=== PATIENT | male | born 1980 | race Caucasian/White ===

== ENCOUNTER → 2017-08-06 10:39 | Outpatient (CLI) | payer BC, SELFPAY ==
[2017-08-06 10:52] LABS: Adenovirus,PCR Not Detected (NotDetected); Bordetella Pertussis Not Detected (NotDetected); Chlamydophila Pneumoniae, PCR Not Detected (NotDetected); Coronavirus 229E Not Detected (NotDetected); Coronavirus NL63 Not Detected (NotDetected); Coronavirus OC43 Not Detected (NotDetected); Coronovirus HKU1,PCR Not Detected (NotDetected); Human Metapneumovirus Not Detected (NotDetected); Influenza A, PCR Not Detected (NotDetected); Influenza AH1, 2009 Not Detected (NotDetected); Influenza AH1, PCR Not Detected (NotDetected); Influenza AH3,PCR Not Detected (NotDetected); Influenza B, PCR Not Detected (NotDetected); Mycoplasma Pneumoniae, PCR Not Detected (NotDected); Parainfluenza 1, PCR Not Detected (NotDetected); Parainfluenza 2, PCR Not Detected (NotDetected); Parainfluenza 3, PCR Not Detected (NotDetected); Parainfluenza 4, PCR Not Detected (NotDetected); Respiratory Syncytial Virus Not Detected (NotDetected); Rhinovirus/Enterovirus Not Detected (NotDetected)
== END ==
PROVIDERS: PCP Nurse Practitioner Family; Visit Provider Nurse Practitioner Family
DX: R05 Cough (principal); R53.81 Other malaise
CPT/HCPCS: 87486; 87581; 87633; 87798

== ENCOUNTER → 2018-07-12 08:30 | Outpatient (CLI) | payer BC, SELFPAY ==
[2018-07-12 13:30] LABS: Basophils # 0.1 K/mm3 (0-0.2); Basophils % 0.6 % (0.1-2.0); Eosinophils # 0.1 K/mm3 (0.0-0.4); Eosinophils % 1.6 % (0.1-12.0); Hematocrit 46.3 % (42.0-52.0); Hemoglobin 15.7 g/dL (14.1-18.0); Lymphocytes # 1.4 K/mm3 (0.7-4.5); Lymphocytes % 19.5 % (10-50); Mean Corpuscular HGB Conc 33.9 g/dL (31.8-35.4); Mean Corpuscular Hemoglobin 29.4 pg (27.0-31.2); Mean Corpuscular Volume 86.7 fl (80-94); Mean Platelet Volume 9.9 fl (7.4-10.4); Monocytes # 0.4 K/mm3 (0.1-1.0); Monocytes % 5.5 % (1.7-9.3); Neutrophils # 5.2 K/mm3 (1.8-7.8); Neutrophils % 72.8 % (37.0-80.0); Platelet Count 177 K/mm3 (142-424); Red Blood Count 5.34 M/mm3 (4.60-6.20); White Blood Count 7.1 K/mm3 (4.8-10.8)
[2018-07-12 13:55] LABS: Alanine Aminotransferase 32 U/L (12-78); Albumin Level 4.3 gm/dL (3.4-5.0); Albumin/Globulin Ratio 1.6 (1.1-1.8); Alkaline Phosphatase 59 U/L (46-116); Anion Gap 13.6 mEq/L (5-15); Aspartate Amino Transferase 18 U/L (15-37); Bilirubin,Total 0.5 mg/dL (0.2-1.0); Blood Urea Nitrogen 18 mg/dL (7-18); Calcium 9.3 mg/dL (8.5-10.1); Carbon Dioxide 27 mmol/L (21.0-32.0); Chloride 105 mmol/L (98-107); Chol/HDL Ratio 4.5 (1-3.5); Cholesterol 170 mg/dL (140-200); Creatinine,Serum 1.13 mg/dL (0.70-1.30); Estimated Glomerular Filt Rate 73 ml/min (>60); GFR (African American) 88 ML/MIN (>60); Globulin 2.7 gm/dl (1.3-3.2); Glucose 99 mg/dL (74-106); HDL Cholesterol 38 mg/dL (27-67); LDL Cholesterol 119 mg/dL (0-130); Potassium 4.6 mmoL/L (3.5-5.1); Sodium 141 mmol/L (136-145); Thyroid Stimulating Hormone 1.78 uIU/ml (0.358-3.740); Triglycerides 63 mg/dL (30-200); VLDL Cholesterol 13 mg/dL (0-40)
[2018-07-13 18:08] LABS: Vitamin B12 610 pg/mL (232-1245); Vitamin D 25 Hydroxy 25.6 ng/mL (30.0-100.0)
== END ==
PROVIDERS: PCP Nurse Practitioner Family; Visit Provider Nurse Practitioner Family
DX: Z00.00 Encounter for general adult medical examination without abnormal findings (principal); R53.83 Other fatigue
CPT/HCPCS: 36415; 80053; 80061; 82607; 82652; 84443; 85025

== ENCOUNTER 2020-01-03 12:44 | Emergency (ER) | payer BC, SELFPAY ==
[2020-01-03 13:00] VITALS: BP 135/84; PULSE 57; RESP 18; TEMP 36.8; O2SAT 98; BMI 27.1
--- NOTE | 2020-01-03 13:21 | HMH.EDUTC ---
[facility] [place] Disposition Clinical Impression: Exposure to COVID-19 virus, Encounter for laboratory testing for COVID-19 virus Disposition: Home, Self-Care Condition on Discharge: Good Instructions: Preventing the Spread of Coronavirus Discharge Instructions, DI for Fever (Symptom) -- Adult, DI for Cough -- Adult Additional Instructions: *Monitor Temp, Over the counter Motrin or Tylenol as directed/as needed Tylenol every 4 hours and Motrin every 6 hours (as long as your family doctor has told you that you can take it) for fever or pain. and straight to ER if unable to lower temp less than 101.0 after medication given *Warm salt water gargles may help to soothe the throat *Throat Lozenges *Warm fluids like tea with honey may help to soothe the throat *Sleep elevated *Humidifier/Vaporizer Follow up IMMEDIATELY for new or worsening symptoms or no Noticeable improvement over the next 48-72 hours. 911 for difficulty breathing or swallowing You was tested for today for COVID19 your test result should be back later this evening, you may call back later this evening to see if your test results are back and the result You was given a handout with instructions for Self Quarantine and Self isolation for while you wait on test results and what to do if they are positive Prescriptions: Albuterol Sulfate [Proventil-HFA 90mcg/puff Inh] 1 - 2 puffs IH Q4HP PRN #1 inh PRN Reason: Shortness Of Breath Transmission Status: Pending to [employer] Referrals: PCP,No [Primary Care Provider] - As needed Forms: Work/School Release Medical Decision Making - Russel Inquiry Pt receiving controlled substance: No Russel was queried for this patient: No Vital Signs: 01/03/20 13:00 Temperature 98.3 F Temperature Source Oral Pulse Rate [Radial] 57 L Respiratory Rate 18 Blood Pressure [Right Arm] 135/84 Blood Pressure Mean [Right Arm] 101 Blood Pressure Source [Right Arm] Automatic Cuff Blood Pressure Position [Right Arm] Sitting 02 Sat by Pulse Oximetry 98 Oxygen Delivery Method Room Air Orders (Tests/Meds): ORDERS Category Date Time Status Covid-19 Nasal PCR ([facility]) Routine Lab 01/03/20 13:07 Received [facility] [place] HPI - General Stated complaint: back pain,lung pain,stuffy nose Time Seen by Provider: 01/03/20 13:22 Mode of Arrival: Ambulatory Source of Information: Patient Limitations: No Limitations Description of Symptoms (Recalled from Triage Doc. by RN): COVID exposure, mcmanus, achy sinus pressure HEENT Symptoms (Recalled from RN notes): Yes Resp Symptoms (Recalled from RN notes): No Skin Symptoms (Recalled from RN notes): No MS Symptoms (Recalled from RN notes): No Functional Status (Recalled from RN notes): wnl - History of Present Illness Provider Complaint: Patient states that daughter tested positive for COVID yesterday States that for last couple of days he has been having cough, nasal congestion, sore throat and sinus pressure States that he is an every day smoker and he has been feeling of shortness of breath at times from coughing so much States that today he came in to get checked for COVID - Related Data Previous Rx's Medication Instructions Recorded Albuterol Sulfate [Proventil-HFA 1 - 2 puffs IH Q4HP PRN #1 inh 01/03/20 90mcg/puff Inh] Allergies Allergy/AdvReac Type Severity Reaction Status Date / Time Penicillins Allergy Verified 01/03/20 13:03 - Worker's Comp Is this a Worker's Comp case?: No [facility] History - Hepatitis A Screen Drug use history?: No High risk sexual behaviors?: No History of sexually transmitted infection?: No Currently employed?: No Childcare worker?: No Do you have indoor plumbing?: Yes Do you have electricity?: Yes Attestation statement:: This patient has been screened for Hepatitis A risk factors. I have reviewed the patient's past medical history: Yes - Social History Smoking Status: Current every day smoker Tobacco Type: cigarettes # Packs/Day
[2020-01-03 13:39] VITALS: BP 135/84; PULSE 64; RESP 18; TEMP 36.8
== END 2020-01-03 13:39 | disposition home or self-care (01) ==
PROVIDERS: Emergency Provider Nurse Practitioner
DX: Z20.828 Contact with and (suspected) exposure to other viral communicable diseases (principal); F17.210 Nicotine dependence, cigarettes, uncomplicated
CPT/HCPCS: 99201; U0003

== ENCOUNTER 2020-01-10 16:46 | Emergency (ER) | payer BC, SELFPAY ==
[2020-01-10 17:08] VITALS: BP 156/62; PULSE 68; RESP 17; TEMP 37.1; O2SAT 99; BMI 27.2
--- NOTE | 2020-01-10 17:14 | XR_ITS ---
PROCEDURE: XR CHEST PORTABLE Referring Doctor: Sid Thoams Patient Age:39Y CLINICAL HISTORY: burning w/ inspiration Positive for covid. Burning sensation chest and with inspiration. Current smoker. COMPARISON: No exams were available for comparison FINDINGS: Portable upright AP chest performed; 2 upright views performed today with no previous CXR for comparison The lungs appear well expanded and clear with nothing definitely acute. Upper normal markings towards the left infrahilar region within normal limits on these 2 AP views. If symptoms should progress follow-up PA and lateral chest recommended. No hilar or mediastinal adenopathy or mass. No lung mass. No pleural effusion or pneumothorax. Heart normal size. Normal pulmonary vascularity,The lungs are clear without discrete infiltrates, and no suspicious nodules, or pleural effusions. No acute bony abnormalities. Chest wall unremarkable. IMPRESSION: Lungs clear with nothing definitely acute. Dictated by: Zurdo Ramirez MD 01/10/2020 17:52 Zurdo Ramirez MD in [place] 01/10/2020 17:52
--- NOTE | 2020-01-10 17:15 | HMH.EDGENADL ---
ED Disposition Clinical Impression: COVID-19 Disposition: Home, Self-Care Condition on Discharge: Good Prescriptions: methylPREDNISolone [Medrol] 4 mg PO DIRECTED #21 pack Transmission Status: Pending to [employer] Referrals: PCP,No [Primary Care Provider] - - Critical Care Critical Care Time: No Attestation: On 01/10/20, the high probability of a clinically significant, sudden or life threatening deterioration of the following system(s) required my full and direct attention, intervention and personal management. The time I documented below is in addition to time spent performing reported procedures but includes the following listed in this critical care notation. Medical Decision Making - Medical Records Medical records reviewed: Yes: I reviewed the patient's medical records. - Russel Inquiry Pt receiving controlled substance: No Vital Signs: 01/10/20 17:08 01/10/20 17:24 Temperature 98.7 F Temperature Source Oral Pulse Rate [Right Radial] 68 84 Respiratory Rate 17 18 Blood Pressure [Right Arm] 156/62 H 156/92 H Blood Pressure Mean [Right Arm] 93 113 Blood Pressure Source [Right Arm] Automatic Cuff Blood Pressure Position [Right Arm] Sitting 02 Sat by Pulse Oximetry 99 97 Oxygen Delivery Method Room Air Room Air - Lab Data Lab results reviewed: Yes: I reviewed the patient's lab results. Lab Results 01/10/20 18:15: WBC 5.8, RBC 5.58, Hgb 16.7, Hct 50.5, MCV 90.6, MCH 29.9, MCHC 33.0, RDW 12.7, Plt Count 152, MPV 9.8, Neut % (Auto) 63.7, Lymph % (Auto) 23.7, Millard % (Auto) 8.5, Eos % (Auto) 3.0, Baso % (Auto) 1.3, Neut # (Auto) 3.7, Lymph # (Auto) 1.4, Millard # (Auto) 0.5, Eos # (Auto) 0.2, Baso # (Auto) 0.1 01/10/20 18:15: Sodium 139, Potassium 4.3, Chloride 103, Carbon Dioxide 27, Anion Gap 13.3, BUN 17, Creatinine 1.10, Estimated Creat Clear 117, Estimated GFR 75, Est GFR ( Amer) 91, Glucose 96, Calcium 9.3 Result diagrams: 01/10/20 18:15 01/10/20 18:15 Orders (Tests/Meds): ORDERS Category Date Time Status Venous Blood Gas Stat RT 01/10/20 17:18 Ordered - Radiology Data #1 Image(s): Chest Image Reviewed: Yes I reviewed the patient's radiology results Preliminary Findings: Normal/NAD General Adult HPI - General Chief complaint: Upper Respiratory Infection Stated complaint: Pain in both lungs, tested positive for COVID Time Seen by Provider: 01/10/20 17:10 Mode of Arrival: Ambulatory Source of Information: Patient Limitations: No Limitations Description of Symptoms (Recalled from ER Triage Doc. by RN): pt was tested positive for COVID on by stacy caldwell. pt was placed on zpack and albuterol. pt states that he is having burning in his posterior back. - History of Present Illness HPI narrative: This is a 39-year-old male that presents with few day history of burning in his lower lungs. Patient tested positive for COVID-19 approximately 3 to 4 days ago. Symptoms ongoing since. Patient treated with nebulized albuterol and azithromycin per PCP. No current fever. No dyspnea/orthopnea. Symptoms wax and wane worse with inspiration. Moderate intensity. - Related Data Previous Rx's Medication Instructions Recorded Albuterol Sulfate [Proventil-HFA 1 - 2 puffs IH Q4HP PRN #1 inh 01/03/20 90mcg/puff Inh] methylPREDNISolone [Medrol] 4 mg PO DIRECTED #21 pack 01/10/20 Allergies Allergy/AdvReac Type Severity Reaction Status Date / Time Penicillins Allergy Verified 01/10/20 17:13 [facility] History - Hepatitis A Screen Drug use history?: No High risk sexual behaviors?: No History of sexually transmitted infection?: No Currently employed?: No Childcare worker?: No Do you have indoor plumbing?: Yes Do you have electricity?: Yes Attestation statement:: This patient has been screened for Hepatitis A risk factors. I have reviewed the patient's past medical history: Yes Medical History: Denies::
[2020-01-10 17:24] VITALS: BP 156/92; PULSE 84; RESP 18; O2SAT 97
[2020-01-10 18:25] LABS: Basophils # 0.1 K/mm3 (0-0.2); Basophils % 1.3 % (0.1-2.0); Eosinophils # 0.2 K/mm3 (0.0-0.4); Hematocrit 50.5 % (42.0-52.0); Hemoglobin 16.7 g/dL (14.1-18.0); Lymphocytes # 1.4 K/mm3 (0.7-4.5); Lymphocytes % 23.7 % (10-50); Mean Corpuscular Hemoglobin 29.9 pg (27.0-31.2); Mean Corpuscular Volume 90.6 fl (80-94); Mean Platelet Volume 9.8 fl (7.4-10.4); Monocytes # 0.5 K/mm3 (0.1-1.0); Monocytes % 8.5 % (1.7-9.3); Neutrophils # 3.7 K/mm3 (1.8-7.8); Neutrophils % 63.7 % (37.0-80.0); Platelet Count 152 K/mm3 (142-424); Red Blood Count 5.58 M/mm3 (4.60-6.20); Red Cell Distribution Width 12.7 % (11.5-17.5); White Blood Count 5.8 K/mm3 (4.8-10.8)
[2020-01-10 18:38] LABS: Anion Gap 13.3 mEq/L (5-15); Blood Urea Nitrogen 17 mg/dl (9-20); Calcium 9.3 mg/dl (8.4-10.2); Carbon Dioxide 27 mmol/L (22.0-30.0); Chloride 103 mmol/L (98-107); Creatinine Clearance Estimated 117 mL/min (50-200); Estimated Glomerular Filt Rate 75 ml/min (>60); GFR (African American) 91 ML/MIN (>60); Glucose 96 mg/dl (74-100); Potassium 4.3 mmoL/L (3.5-5.1); Sodium 139 mmol/L (136-145)
[2020-01-10 18:58] LABS: VBG Base Excess -5.2 mmol/L (-2.4-2.3); VBG HCO3 21.2 mmol/L (23-30); VBG PCO2 44.3 mmol/L (35-51); VBG PO2 34.5 mmol/L (28-40); VBG Total CO2 22.6 mmol/L (23-27)
[2020-01-10 19:00] VITALS: BP 140/85; PULSE 80; RESP 18; TEMP 37.1; O2SAT 98
== END 2020-01-10 19:03 | disposition home or self-care (01) ==
PROVIDERS: Emergency Provider Emergency Medicine
DX: U07.1 COVID-19 (principal); F17.210 Nicotine dependence, cigarettes, uncomplicated
CPT/HCPCS: 36415; 71045; 80048; 82803; 85025; 96372; 99283

== ENCOUNTER 2020-01-23 09:22 | Emergency (ER) | payer BC, SELFPAY ==
[2020-01-23 09:30] VITALS: BP 154/95; PULSE 68; RESP 18; TEMP 36.7; O2SAT 98; BMI 27.1
--- NOTE | 2020-01-23 09:38 | HMH.EDUTC ---
[facility] [place] Impression: Torticollis Disposition: Home, Self-Care Condition on Discharge: Good Instructions: DI for Torticollis Additional Instructions: Heat, gentle stretching, massage. Take medications as prescribed. Follow up with PCP next week if not improving. Prescriptions: Cyclobenzaprine HCl [Flexeril 10mg tablet] 10 mg PO TID PRN 30 Days #90 tab PRN Reason: Muscle Spasm Transmission Status: Received by [facility] Naproxen [Naproxen 500mg tab] 500 mg PO BID 15 Days #30 tab Transmission Status: Received by [facility] Referrals: Norma Sheldon APRN [Primary Care Provider] - Time of Disposition: 11:06 Medical Decision Making - Russel Inquiry Pt receiving controlled substance: No Vital Signs: 01/23/20 09:30 01/23/20 10:40 Temperature 98.0 F 98.0 F Temperature Source Oral Pulse Rate 68 Pulse Rate [Right Brachial] 68 Respiratory Rate 18 18 Blood Pressure 154/95 H Blood Pressure [Left Arm] 154/95 H Blood Pressure Mean [Left Arm] 114 Blood Pressure Source [Left Arm] Automatic Cuff Blood Pressure Position [Left Arm] Sitting 02 Sat by Pulse Oximetry 98 Oxygen Delivery Method Room Air Orders (Tests/Meds): ED MEDICATIONS Discontinued Medications Generic Name Dose Route Start Last Admin Trade Name Freq PRN Reason Stop Dose Admin Ketorolac Tromethamine 60 mg 01/23/20 09:53 01/23/20 09:57 Ketorolac 60mg/2ml Vial IM 01/23/20 09:54 60 mg ONCE ONE Administration Orphenadrine Citrate 60 mg 01/23/20 09:53 01/23/20 09:57 Orphenadrine Citrate 60mg/2ml Vial IM 01/23/20 09:54 60 mg ONCE ONE Administration - Radiology Data #1 Image(s): C-Spine Image Reviewed: Yes I have reviewed radiologist's interpretation Preliminary Findings: Normal/NAD [facility] [place] - General Stated complaint: neck pain Time Seen by Provider: 01/23/20 09:38 Mode of Arrival: Ambulatory Source of Information: Patient Limitations: No Limitations Description of Symptoms (Recalled from Triage Doc. by RN): PATIENT C/O NECK PAIN X 3 DAYS. NO KNOWN INJURY. STATES PAIN IS SHARP ON THE LEFT SIDE AND IS CONSISTENT; REPOSITIONING DOES NOT ALLEVIATE PAIN HEENT Symptoms (Recalled from RN notes): No Resp Symptoms (Recalled from RN notes): No Skin Symptoms (Recalled from RN notes): No MS Symptoms (Recalled from RN notes): Yes Functional Status (Recalled from RN notes): WNL - History of Present Illness Provider Complaint: Neck pain X 2 days. Hurts in left side of neck and radiates down left arm. Sharp pain. Cannot move head without pain. No numbness or tingling. No injury. Onset (ago): day(s) (2) Location: neck Radiation: extremity Quality: aching Consistency: constant Relieving factors: immobilization Exacerbating factors: movement Associated symptoms: denies other symptoms Treatments prior to arrival: NSAID, heat therapy - Related Data Previous Rx's Medication Instructions Recorded Cyclobenzaprine HCl [Flexeril 10mg 10 mg PO TID PRN 30 Days #90 tab 01/23/20 tablet] Naproxen [Naproxen 500mg tab] 500 mg PO BID 15 Days #30 tab 01/23/20 Allergies Allergy/AdvReac Type Severity Reaction Status Date / Time Penicillins Allergy Verified 01/10/20 17:13 - Worker's Comp Is this a Worker's Comp case?: No [facility] History - Hepatitis A Screen Drug use history?: No High risk sexual behaviors?: No History of sexually transmitted infection?: No Currently employed?: No Childcare worker?: No Do you have indoor plumbing?: Yes Do you have electricity?: Yes Attestation statement:: This patient has been screened for Hepatitis A risk factors. 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
--- NOTE | 2020-01-23 09:59 | XR_ITS ---
PROCEDURE: XR CERVICAL SPINE 4V CLINICAL INDICATION: PAIN Left-sided neck pain with left arm pain COMPARISON: No exams were available for comparison FINDINGS: No fracture or dislocation. No lytic or blastic change. There is normal mineralization. There is straightening/reversal of the normal lordosis which may be due to patient positioning or muscle spasm.. There is 2 mm anterolisthesis of C4 on C5 with mild kyphosis at that region. Mild degenerative disc disease C5-C6. No foraminal narrowing. Other findings:None. IMPRESSION: Slight reversal cervical lordosis which could be due to patient positioning or muscle spasm with mild degenerative disc disease C5-C6 Dictated by: Chucky Bermudez MD 01/23/2020 10:49 Chucky Bermudez MD in [place] 01/23/2020 10:49
[2020-01-23 10:40] VITALS: BP 154/95; PULSE 68; RESP 18; TEMP 36.7; O2SAT 98
== END 2020-01-23 11:00 | disposition home or self-care (01) ==
PROVIDERS: Emergency Provider Physician Assistant; PCP Nurse Practitioner Family
DX: M43.6 Torticollis (principal); F17.210 Nicotine dependence, cigarettes, uncomplicated
CPT/HCPCS: 72050; 96372; 99202

== ENCOUNTER 2020-04-17 09:56 | Emergency (ER) | payer BC, SELFPAY ==
[2020-04-17 10:00] VITALS: BP 177/93; PULSE 86; RESP 14; TEMP 36.8; O2SAT 99; BMI 27.7
--- NOTE | 2020-04-17 10:08 | XR_ITS ---
PROCEDURE: CR XR THORACIC SPINE 3V CR XR CHEST 2V Both studies from 04/17/2020 Referring Doctor: Ryan Garcia Patient Age:40Y CLINICAL INDICATION: pain chest pain. Thoracic back pain. And lower back pain COMPARISON: CR XR CHEST PORTABLE from 01/10/2020 CR XR CHEST 2V from 04/17/2020 FINDINGS: -THORACIC SPINE-3 VIEW: AP lateral and swimmer's lateral view: The thoracic spine is intact no compression fractures vertebral bodies and disc spaces appear intact stable with no significant findings but the pedicles are intact but no perispinal mass but the posterior ribs adjacent to the spine appear intact. Cervical thoracic junction satisfactory with only scant degenerative changes lower C-spine c6/7 . CHEST X-RAY PA AND LATERAL The lungs are well expanded but no significant change since previous CXR clear with no active disease The heart casi and mediastinal structures stable, satisfactory. Chest wall unremarkable IMPRESSION: No acute findings at chest or T-spine Chest-stable chest. No active disease T-spine:-intact and WNL Dictated by: Zurdo Ramirez MD 04/17/2020 12:05 Zurdo Ramirez MD in [place] 04/17/2020 12:05
--- NOTE | 2020-04-17 10:08 | XR_ITS ---
PROCEDURE: XR LUMBAR SPINE 2-3V Referring Doctor: Ryan Garcia Patient Age:40Y CLINICAL INDICATION: pain right-sided back pain No known injury COMPARISON: CR XR CHEST PORTABLE from 01/10/2020 CR XR THORACIC SPINE 3V from 04/17/2020 CR XR CHEST 2V from 04/17/2020 FINDINGS: Lumbar spine, AP, lateral, and lateral lumbosacral spot view performed there is decreased height at L2. Appearance suggest with 15-20 percent loss of height from mild old superior endplate compression fracture. The loss of height is slightly more evident towards the right superior aspect of vertebral body. But the anterior and lateral cortex appears smooth suggesting this is old as does the mild sclerosis beneath the superior endplate.. Correlation required. Of the other vertebral bodies and disc spaces appear intact. Disc spaces of with borderline narrowing at T12/L1 likely WNL. The pedicles are intact superior sacrum unremarkable. IMPRESSION: No acute findings lumbar spine. . Disc spaces are well maintained throughout lumbar spine L2.-old compression fracture superior endplate L2 with up to 20 percent loss of height--yields mild wedge configuration L2 vertebra (If pain should persist/progress, follow-up MR may be of benefit to further evaluate to totally exclude a recent compression fracture event and could evaluate for other features) Dictated by: Zurdo Ramirez MD 04/17/2020 11:38 Zurdo Ramirez MD in [place] 04/17/2020 11:38
[2020-04-17 10:28] LABS: Apearance,Urine Clear (Clear); Color,Urine Yellow (Yellow)
[2020-04-17 10:29] LABS: Bilirubin,Urine Negative (Negative); Blood, Urine Negative (Negative); Glucose,Urine (UA) Negative (Negative); Ketones,Urine Negative (Negative); PH,Urine 6.5 (5.0-8.5); Protein,Urine Negative (Negative); UTC Leukocyte Esterase,Urine Negative (Negative); UTC Nitrate,Urine Negative (Negative); Urobilinogen,Urine 0.2 EU/dl (0.2)
--- NOTE | 2020-04-17 11:01 | HMH.EDUTC ---
[facility] [place] Clinical Impression: Lumbar back pain Thoracic back pain Qualifiers: Chronicity: acute Back pain laterality: right Qualified Code(s): M54.6 - Pain in thoracic spine Disposition: Home, Self-Care Condition on Discharge: Good Instructions: DI for Low Back Pain, DI for Thoracic Back Pain Additional Instructions: Continue the medications that were prescribed by your primary care doctor yesterday. Follow up with your primary care doctor. GO TO THE ER FOR ANY WORSENING SYMPTOMS OR CONCERNS Referrals: Francoise Roe APRN [Primary Care Provider] - Time of Disposition: 11:05 Medical Decision Making - Medical Records Medical records reviewed: No: I reviewed the patient's medical records. - Russel Inquiry Pt receiving controlled substance: No Vital Signs: 04/17/20 10:00 04/17/20 11:09 Temperature 98.3 F 98.3 F Temperature Source Oral Pulse Rate 86 Pulse Rate [Right Brachial] 86 Respiratory Rate 14 14 Blood Pressure 177/93 H Blood Pressure [Right Arm] 177/93 H Blood Pressure Mean [Right Arm] 121 Blood Pressure Source [Right Arm] Automatic Cuff Blood Pressure Position [Right Arm] Sitting 02 Sat by Pulse Oximetry 99 Oxygen Delivery Method Room Air - Lab Data Lab Results 04/17/20 10:09: Urine Color Yellow, Urine Appearance Clear, Urine pH 6.5, Ur Specific [place] 1.020, Urine Protein Negative, Urine Glucose (UA) Negative, Urine Ketones Negative, Urine Blood Negative, Urine Nitrate Negative, Urine Bilirubin Negative, Urine Urobilinogen 0.2, Ur Leukocyte Esterase Negative [facility] [place] - General Stated complaint: rt side back pain Time Seen by Provider: 04/17/20 11:01 Mode of Arrival: Ambulatory Source of Information: Patient Limitations: No Limitations Description of Symptoms (Recalled from Triage Doc. by RN): PATIENT C/O MID RIGHT BACK PAIN THAT STARTED A COUPLE OF MONTHS AGO AND HAS GOTTEN WORSE; HE STATES IT JUST DOESN'T FEEL RIGHT HEENT Symptoms (Recalled from RN notes): No Resp Symptoms (Recalled from RN notes): No Skin Symptoms (Recalled from RN notes): No MS Symptoms (Recalled from RN notes): Yes Functional Status (Recalled from RN notes): WNL - History of Present Illness Provider Complaint: He was saw at his pcp's office yesterday and prescribed a muscle relaxer and steroids for this pain. He is here wanting to get x-rays. He denies any known injury. - Related Data Home Medications Medication Instructions Recorded Confirmed Diclofenac Sodium [Diclofenac 75mg 75 mg PO BID 04/17/20 04/17/20 Tab] Previous Rx's Medication Instructions Recorded Cyclobenzaprine HCl [Flexeril 10mg 10 mg PO TID PRN 30 Days #90 tab 01/23/20 tablet] Allergies Allergy/AdvReac Type Severity Reaction Status Date / Time Penicillins Allergy Verified 01/10/20 17:13 - Worker's Comp Is this a Worker's Comp case?: No [facility] History - Hepatitis A Screen Drug use history?: No High risk sexual behaviors?: No History of sexually transmitted infection?: No Currently employed?: No Childcare worker?: No Do you have indoor plumbing?: Yes Do you have electricity?: Yes Attestation statement:: This patient has been screened for Hepatitis A risk factors. I have reviewed the patient's past medical history: Yes Medical History: Denies:: Diabetes Mellitus Type 1, Diabetes Mellitus Type 2 Fractures: Yes (BACK) - Social History Smoking Status: Current every day smoker Tobacco Type: cigarettes # Packs/Day (cigarettes): 1 Alcohol Intake: never Alcohol Intake Frequency:: a few times a week Occupational Status: other ROS Obtained: Yes All systems reviewed & no additional complaints - Constitutional Constitutional: Reports system reviewed and no additional complaints, except as docu - Eyes Eyes: Reports system reviewed and no additional complaints, except as docu - ENT Ears, Nose, Mouth, and Throat: Reports system reviewed and no additional complaints, exce
[2020-04-17 11:09] VITALS: BP 177/93; PULSE 86; RESP 14; TEMP 36.8; O2SAT 99
== END 2020-04-17 11:15 | disposition home or self-care (01) ==
PROVIDERS: Emergency Provider Nurse Practitioner Family; PCP Nurse Practitioner Family
DX: M54.5 Low back pain (principal); M54.6 Pain in thoracic spine; F17.210 Nicotine dependence, cigarettes, uncomplicated
CPT/HCPCS: 71046; 72072; 72100; 81003; 99202; G0463

== ENCOUNTER → 2020-05-04 09:22 | Outpatient (CLI) | payer BC, SELFPAY ==
--- NOTE | 2020-05-04 09:27 | CT_ITS ---
PROCEDURE: CT CHEST WO/W CON CLINCAL INDICATION: PERSISTENT COUGH FOR 3 WKS Covid positive in January 2020, pt has had a productive cough since then, pt says back pressure around lungs, chest pain COMPARISON: CR XR CHEST 2V from 04/17/2020 TECHNIQUE: IV Contrast: 75ml Isovue 370 Axial images obtained with sagittal and coronal reformats. All CT scans at the facility use one or more dose reduction, viz: automated exposure control, ma/kV adjustment per patient size (including targeted exams where dose is matched to indication, i.e. head), or iterative reconstruction technique. FINDINGS: HEART AND MEDIASTINAL STRUCTURES: No evidence of pulmonary embolus, aortic aneurysm, or aortic dissection. No mediastinal or hilar mass or adenopathy. LUNGS AND PLEURAL SPACES: No lobar consolidation or collapse is evident. There is some minimal atelectatic changes or scarring within the lingula and left apex. Calcified granuloma is present in the central aspect of the left upper lobe. There are few small areas of nodularity within the fissural regions. No pleural effusions BONY STRUCTURES: No acute bony abnormalities apparent. UPPER ABDOMEN: Unremarkable. ADDITIONAL FINDINGS: No other significant abnormalities. IMPRESSION: Minimal atelectatic or fibrotic changes are present in the left apex and lingula. No areas of consolidation or effusions. No acute finding. Dictated by: Chucky Bermudez MD 05/05/2020 13:00 Chucky Bermudez MD in [place] 05/05/2020 13:00
== END ==
PROVIDERS: PCP Nurse Practitioner Family; Visit Provider Internal Medicine Adolescent Medicine
DX: R05 Cough (principal)
CPT/HCPCS: 71270; Q9967

== ENCOUNTER 2020-12-05 12:14 | Emergency (ER) | payer BC, SELFPAY ==
--- NOTE | 2020-12-05 12:09 | ECG_ITS ---
APPROVED REPORT Exam: Resting ECG HR:80 bpm ECG Measurements Heart Rate 80 AXES IL 150 P 75 QRSd 88 QRS 80 QT 360 T 63 QTc 415 Conclusion Normal sinus rhythm Normal ECG Electronically signed by : Андрей Linsday MD 12/06/2020 20:40:58
[2020-12-05 12:14] VITALS: BP 173/102; PULSE 81; RESP 18; TEMP 37.2; O2SAT 98; BMI 24.4
--- NOTE | 2020-12-05 12:22 | XR_ITS ---
PROCEDURE INFORMATION: Exam: XR Chest Exam date and time: 12/05/2020 12:22 PM Age: 40 years old Clinical indication: Patient HX: Right sided upper chest pain, patient said it really hurt when i snapped heart monitor lead back onto right upper chest wall. Smoker, no chest surgeries. TECHNIQUE: Imaging protocol: XR of the chest. Views: 1 view. Portable AP upright exam, 2 images received COMPARISON: CT CHEST WO/W CON 05/04/2020 9:54 AM FINDINGS: Lungs: No acute pulmonary findings. No pulmonary consolidation. Lung volumes within upper normal limits. Pleural spaces: Unremarkable. No significant pleural effusion. No pneumothorax. Heart/Mediastinum: The cardiac silhouette is normal. Bones/joints: No acute fracture, as visualized. Other findings: Overlying rn cardiac rehab electrodes. IMPRESSION: No acute findings.
[2020-12-05 12:30] LABS: Basophils # 0.1 K/mm3 (0-0.2); Basophils % 0.8 % (0.1-2.0); Eosinophils # 0.1 K/mm3 (0.0-0.4); Eosinophils % 1.6 % (0.1-12.0); Hematocrit 49.2 % (42.0-52.0); Hemoglobin 16.5 g/dL (14.1-18.0); Lymphocytes # 1.6 K/mm3 (0.7-4.5); Lymphocytes % 17.2 % (10-50); Mean Corpuscular HGB Conc 33.5 g/dL (31.8-35.4); Mean Corpuscular Volume 89.5 fl (80-94); Mean Platelet Volume 10.5 fl (7.4-10.4); Monocytes # 0.6 K/mm3 (0.1-1.0); Monocytes % 6.2 % (1.7-9.3); Neutrophils # 6.7 K/mm3 (1.8-7.8); Neutrophils % 74.3 % (37.0-80.0); Platelet Count 168 K/mm3 (142-424); Red Cell Distribution Width 13.2 % (11.5-17.5)
[2020-12-05 12:39] LABS: Chloride 103 mmol/L (98-107); Sodium 141 mmol/L (136-145)
[2020-12-05 12:40] LABS: Potassium 3.9 mmoL/L (3.5-5.1)
[2020-12-05 12:41] LABS: Lipase 80 U/L (23-300)
[2020-12-05 12:42] LABS: Alanine Aminotransferase 23 U/L (12-78); Albumin Level 4.4 g/dl (3.5-5.0); Alkaline Phosphatase 72 U/L (38-126); Anion Gap 12.9 mEq/L (5-15); Aspartate Amino Transferase 33 U/L (17-59); Bilirubin,Direct 0.1 mg/dl (0.0-0.4); Bilirubin,Indirect 0.3 mg/dL (0.0-0.9); Bilirubin,Total 0.4 mg/dl (0.2-1.3); Bilirubin,Unconjugated 0.4 mg/dL (0.0-1.1); Blood Urea Nitrogen 16 mg/dl (9-20); Calcium 9.2 mg/dl (8.4-10.2); Carbon Dioxide 29 mmol/L (22.0-30.0); Creatinine Clearance Estimated 101 mL/min (50-200); Estimated Glomerular Filt Rate 75 ml/min (>60); GFR (African American) 90 ML/MIN (>60); Glucose 109 mg/dl (74-100); Total Protein,Serum 7.4 g/dl (6.3-8.2)
[2020-12-05 12:47] VITALS: BP 142/78; PULSE 69; RESP 16; O2SAT 98
[2020-12-05 12:59] LABS: Troponin I < 0.01 ng/ml (0.00-0.034)
[2020-12-05 13:01] VITALS: BP 129/75; PULSE 67; RESP 16; O2SAT 97
[2020-12-05 13:06] LABS: Acetaminophen < 10 ug/ml (10-30)
[2020-12-05 13:30] VITALS: BP 127/82; PULSE 64; RESP 18; O2SAT 96
--- NOTE | 2020-12-05 13:37 | HMH.EDCP ---
ED Disposition Clinical Impression: Pleurisy, Atypical chest pain Disposition: Home, Self-Care Condition on Discharge: Good Additional Instructions: To the emergency department for any new or concerning symptoms. Take Motrin 600 every 6 hours when you are awake for the next 5 days to help reduce inflammation. Referrals: Андрей Lindsay MD [Primary Care Provider] - - Critical Care Critical Care Time: No Attestation: On 12/05/20, the high probability of a clinically significant, sudden or life threatening deterioration of the following system(s) required my full and direct attention, intervention and personal management. The time I documented below is in addition to time spent performing reported procedures but includes the following listed in this critical care notation. Medical Decision Making - Russel Inquiry Pt receiving controlled substance: No Vital Signs: 12/05/20 12:14 12/05/20 12:47 12/05/20 13:01 Temperature 98.9 F Temperature Source Oral Pulse Rate 69 67 Pulse Rate [Radial] 81 Respiratory Rate 18 16 16 Blood Pressure 142/78 H 129/75 Blood Pressure [Right Arm] 173/102 H Blood Pressure Mean 99 98 Blood Pressure Mean [Right Arm] 125 Blood Pressure Position [Right Arm] Sitting 02 Sat by Pulse Oximetry 98 98 97 Oxygen Delivery Method Room Air 12/05/20 13:30 Temperature Temperature Source Pulse Rate 64 Pulse Rate [Radial] Respiratory Rate 18 Blood Pressure 127/82 Blood Pressure [Right Arm] Blood Pressure Mean 92 Blood Pressure Mean [Right Arm] Blood Pressure Position [Right Arm] 02 Sat by Pulse Oximetry 96 Oxygen Delivery Method - Lab Data Lab Results 12/05/20 12:15: Acetaminophen < 10 L 12/05/20 12:25: WBC 9.0, RBC 5.50, Hgb 16.5, Hct 49.2, MCV 89.5, MCH 30.0, MCHC 33.5, RDW 13.2, Plt Count 168, MPV 10.5 H, Neut % (Auto) 74.3, Lymph % (Auto) 17.2, [place] % (Auto) 6.2, Eos % (Auto) 1.6, Baso % (Auto) 0.8, Neut # (Auto) 6.7, Lymph # (Auto) 1.6, [place] # (Auto) 0.6, Eos # (Auto) 0.1, Baso # (Auto) 0.1 12/05/20 12:25: Sodium 141, Potassium 3.9, Chloride 103, Carbon Dioxide 29, Anion Gap 12.9, BUN 16, Creatinine 1.10, Estimated Creat Clear 101, Estimated GFR 75, Est GFR ( Amer) 90, Glucose 109 H, Calcium 9.2, Total Bilirubin 0.4, Direct Bilirubin 0.1, Conjugated Bilirubin 0.0, Indirect Bilirubin 0.3, Unconjugated Bilirubin 0.4, AST 33, ALT 23, Alkaline Phosphatase 72, Troponin I < 0.01, Total Protein 7.4, Albumin 4.4 12/05/20 12:25: Lipase 80 Result diagrams: 12/05/20 12:25 12/05/20 12:25 Orders (Tests/Meds): ED MEDICATIONS Discontinued Medications Generic Name Dose Route Start Last Admin Trade Name Freq PRN Reason Stop Dose Admin Acetaminophen 650 mg 12/05/20 12:47 Acetaminophen 325mg Tab PO 12/05/20 12:48 ONCE ONE Ibuprofen 600 mg 12/05/20 12:47 Ibuprofen 600 Mg Tablet PO 12/05/20 12:48 ONCE ONE ORDERS Category Date Time Status Rapid PCR Covid and Flu A/B Stat Lab 12/05/20 12:25 Ordered Troponin I Q3H Lab 12/05/20 15:30 Ordered Troponin I Q3H Lab 12/05/20 18:30 Ordered - BRENT Score for Non-Stemi Age of Patient: 30-39 years old Heart Rate: 70-89 bpm Systolic Blood Pressure: 160-199 mmHg Serum Creatinine: 0.80-1.19 mg/dl CHF [place] Class: I-No CHF Other Risk Factors: None Non-Stemi Risk Score: 34 Medical Decision Narrative: Patient is a 40-year-old male presents emergency department due to sharp right-sided chest pain. Differential diagnosis includes ACS, pneumothorax, COVID-19, pleurisy, myocarditis, pericarditis among others. Given this plan order CBC, CMP, chest x-ray, troponin, treat patient pain with ibuprofen. Arrival patient is hemodynamically stable mildly hypertensive. X-ray showed no signs of pneumothorax or consolidation, cardiomegaly, no other acute concerns. CBC, CMP grossly within normal limits. EKG showed normal sinus rhythm without any ST depression or ST elevation. Troponin was less than
[2020-12-05 14:00] VITALS: BP 127/80; PULSE 65; RESP 18; O2SAT 94
[2020-12-05 14:42] VITALS: BP 123/64; PULSE 68; RESP 16; TEMP 36.6; O2SAT 98
== END 2020-12-05 14:43 | disposition home or self-care (01) ==
PROVIDERS: Emergency Provider Emergency Medicine; PCP Internal Medicine Adolescent Medicine
DX: R07.89 Other chest pain (principal); F17.210 Nicotine dependence, cigarettes, uncomplicated
CPT/HCPCS: 71045; 80048; 80076; 80329; 83690; 84484; 85025; 93005; 99283

== ENCOUNTER → 2021-05-20 13:09 | Outpatient (CLI) | payer BC, SELFPAY | PROVIDERS: PCP Nurse Practitioner Family; Visit Provider Internal Medicine Cardiovascular Disease | DX: R06.00 Dyspnea, unspecified (principal); R07.89 Other chest pain; R42 Dizziness and giddiness; R06.83 Snoring; R40.0 Somnolence; F17.200 Nicotine dependence, unspecified, uncomplicated; Z82.49 Family history of ischemic heart disease and other diseases of the circulatory system | CPT/HCPCS: 36415; 83880 ==

== ENCOUNTER → 2021-06-02 10:05 | Outpatient (CLI) | payer BC, SELFPAY ==
--- NOTE | 2021-06-02 10:06 | CA_ITS ---
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 Echo Enhancing Agent Indication: Rule Out Septal Defect Agent(s) / Amount(s) Used: Agitated Saline 25 cc 2D Dimensions LVOT 2.04 cm (M/F) 1.5-2.5 LVEF (Duffy's) 69.00 % M: 52 - 72 LV Volume 99.20 mL M: 62 - 150 LV Volume Index 47.69 mL/m2 M: 34 - 74 LA Volume 20.90 mL LA Volume Index 10.04 mL/m2 (M/F) 16-34 M-Mode Dimensions RVDd 1.87 cm (0.9-2.6) LA Diam 3.34 cm (1.9-4.0) LVDd 5.86 cm (3.5-5.7) Ao Diam 3.34 cm (2.0-3.7) LVDs 4.27 cm (3.5-5.7) IVSd 0.95 cm (0.6-1.1) PWd 0.85 cm (0.6-1.1) EF (Teich) 52.10% FS 27.10% EDV (Teich) 170.50 mL ESV (Teich) 81.70 mL LV Diastology E Decel Time 203.00 (160-240 msec) E/A Ratio 1.1 MED E' 9.60 (< 7 cm/sec) E'/MED E' Ratio 7.10 (>14) LAT E' 13.70 (<10 cm/sec) E/LAT E' Ratio 4.98 (>14) Mitral Valve MV E Max Zeeshan. 68.00 (40-130 cm/s) MV A Velocity 62.00 (40-130 cm/s) E/A Ratio 1.10 MV Decel. Time 203.00 (160-240 ms) MV PHT 60.00 ms Left Ventricle Left atrium normal size, left ventricle is normal size, there is mild concentric left ventricular hypertrophy, visually estimated ejection fraction 55% with no regional wall motion abnormality, diastolic parameters are within normal range. Right Ventricle Right atrium and right ventricle are normal size and contractility. Atria Intra-atrial septum is intact, agitated saline contrast study did not identify intracardiac shunt Mitral Valve Mitral valve grossly normal, there is trace mitral regurgitation. Tricuspid Valve Tricuspid grossly normal, there is trace tricuspid regurgitation, tricuspid regurgitation jet velocity is inadequate for calculation of the right ventricular systolic pressure. Pulmonic Valve Pulmonic valve is poorly visualized. Great Vessels Aortic root is normal size. Inferior vena cava normal size with normal inspiratory collapse. Pericardium No significant pericardial effusion. Conclusion 1. Normal left ventricular size, preserved left ventricular systolic function, visually estimated ejection fraction 55% with no regional wall motion abnormality, diastolic parameters are within normal range. 2. Trace mitral and tricuspid regurgitation. 3. Agitated saline contrast study did not identify intracardiac shunt. 4. No significant pericardial effusion. 5. Inferior vena cava normal size with normal inspiratory collapse. Electronically signed by : Cleveland Fuchs MD 06/02/2021 14:55:13
[2021-06-02 12:04] LABS: Basophils # 0.1 K/mm3 (0-0.2); Basophils % 0.8 % (0.1-2.0); Eosinophils # 0.1 K/mm3 (0.0-0.4); Eosinophils % 1.5 % (0.1-12.0); Lymphocytes # 1.4 K/mm3 (0.7-4.5); Mean Corpuscular HGB Conc 32.5 g/dL (31.8-35.4); Mean Corpuscular Hemoglobin 30.3 pg (27.0-31.2); Mean Corpuscular Volume 93.1 fl (80-94); Monocytes # 0.4 K/mm3 (0.1-1.0); Monocytes % 5.3 % (1.7-9.3); Neutrophils # 5.9 K/mm3 (1.8-7.8); Neutrophils % 74.4 % (37.0-80.0); Platelet Count 191 K/mm3 (142-424); Red Blood Count 4.94 M/mm3 (4.60-6.20); Red Cell Distribution Width 13.3 % (11.5-17.5); White Blood Count 7.9 K/mm3 (4.8-10.8)
[2021-06-02 13:04] LABS: Chloride 101 mmol/L (98-107); Potassium 4.8 mmoL/L (3.5-5.1); Sodium 137 mmol/L (136-145)
[2021-06-02 13:06] LABS: Bilirubin,Unconjugated 0.5 mg/dL (0.0-1.1); Blood Urea Nitrogen 12 mg/dl (9-20); Estimated Glomerular Filt Rate 74 ml/min (>60); GFR (African American) 90 ML/MIN (>60)
[2021-06-02 13:07] LABS: Alanine Aminotransferase 16 U/L (12-78); Albumin Level 4.7 g/dl (3.5-5.0); Alkaline Phosphatase 55 U/L (38-126); Anion Gap 10.8 mEq/L (5-15); Aspartate Amino Transferase 26 U/L (17-59); Bilirubin,Direct 0.3 mg/dl (0.0-0.4); Bilirubin,Indirect 0.4 mg/dL (0.0-0.9); Bilirubin,Total 0.7 mg/dl (0.2-1.3); Calcium 8.9 mg/dl (8.4-10.2); Carbon Dioxide 30 mmol/L (22.0-30.0); Glucose 108 mg/dl (74-100)
[2021-06-02 13:22] LABS: Free T4 (Free Thyroxine) 0.88 ng/dl (0.78-2.19)
[2021-06-02 13:39] LABS: Thyroid Stimulating Hormone 1.39 uIU/mL (0.465-4.68)
== END ==
PROVIDERS: PCP Nurse Practitioner Family; Visit Provider Physician Assistant
DX: R06.00 Dyspnea, unspecified (principal); R07.89 Other chest pain; R42 Dizziness and giddiness; F17.200 Nicotine dependence, unspecified, uncomplicated; G47.33 Obstructive sleep apnea (adult) (pediatric); R06.83 Snoring; R40.0 Somnolence; Z82.49 Family history of ischemic heart disease and other diseases of the circulatory system; R94.31 Abnormal electrocardiogram [ECG] [EKG]
CPT/HCPCS: 36415; 80048; 80076; 84439; 84443; 85025; 93306; G0399

== ENCOUNTER → 2021-07-16 09:21 | Outpatient (CLI) | payer BC, SELFPAY ==
[2021-07-16 11:03] LABS: Basophils % 0.7 % (0.1-2.0); Eosinophils # 0.1 K/mm3 (0.0-0.4); Eosinophils % 1.5 % (0.1-12.0); Hemoglobin 15.4 g/dL (14.1-18.0); Lymphocytes # 1.1 K/mm3 (0.7-4.5); Lymphocytes % 19.3 % (10-50); Mean Corpuscular HGB Conc 32.1 g/dL (31.8-35.4); Mean Corpuscular Hemoglobin 30.7 pg (27.0-31.2); Mean Corpuscular Volume 95.6 fl (80-94); Mean Platelet Volume 11.8 fl (7.4-10.4); Monocytes # 0.3 K/mm3 (0.1-1.0); Monocytes % 5.2 % (1.7-9.3); Neutrophils # 4.2 K/mm3 (1.8-7.8); Neutrophils % 73.3 % (37.0-80.0); Platelet Count 158 K/mm3 (142-424); Red Blood Count 5.02 M/mm3 (4.60-6.20); Red Cell Distribution Width 13.7 % (11.5-17.5); White Blood Count 5.7 K/mm3 (4.8-10.8)
== END ==
PROVIDERS: PCP Nurse Practitioner Family; Visit Provider Internal Medicine Cardiovascular Disease
DX: Z01.812 Encounter for preprocedural laboratory examination (principal); Z11.52 Encounter for screening for COVID-19; R06.00 Dyspnea, unspecified; I63.9 Cerebral infarction, unspecified; R77.8 Other specified abnormalities of plasma proteins; I10 Essential (primary) hypertension; F17.200 Nicotine dependence, unspecified, uncomplicated
CPT/HCPCS: 36415; 85025; C9803; U0003; U0005

== ENCOUNTER 2021-07-19 18:40 | Observation (INO) | payer BC, SELFPAY ==
[2021-07-19] VITALS (12 sets, daily range): BP systolic 109–140; BP diastolic 68–88; PULSE 66–110; RESP 15–24; TEMP 36.8–37; O2SAT 95–100; BMI 25.7; BMI 25.0
--- NOTE | 2021-07-19 18:46 | ECG_ITS ---
APPROVED REPORT Exam: Resting ECG HR:77 bpm ECG Measurements Heart Rate 77 AXES PA 170 P 84 QRSd 89 QRS 94 QT 346 T 51 QTc 378 Conclusion SINUS RHYTHM BORDERLINE RIGHT AXIS DEVIATION [QRS AXIS > 90] BORDERLINE ECG UNCONFIRMED REPORT Electronically signed by : Андрей Lindsay MD 07/20/2021 10:11:11
--- NOTE | 2021-07-19 18:46 | XR_ITS ---
PROCEDURE INFORMATION: Exam: XR Chest Exam date and time: 07/19/2021 6:40 PM Age: 41 years old Clinical indication: Pain; Chest pressure; Additional info: Chest pain TECHNIQUE: Imaging protocol: XR of the chest. Views: 1 view. COMPARISON: CR XR CHEST PORTABLE 12/05/2020 12:30 PM FINDINGS: Lungs: Unremarkable. No consolidation. Pleural spaces: Unremarkable. No pleural effusion. No pneumothorax. Heart/Mediastinum: Unremarkable. No cardiomegaly. Bones/joints: Unremarkable. IMPRESSION: No acute findings.
--- NOTE | 2021-07-19 18:47 | HMH.EDGENADL ---
ED Disposition Clinical Impression: Chest pain Qualifiers: Chest pain type: unspecified Qualified Code(s): R07.9 - Chest pain, unspecified Disposition: Admitted as Observation Condition on Discharge: Good Referrals: Provider,Referral, [Referring] - Time of Disposition: 20:12 - Critical Care Critical Care Time: No Attestation: On , the high probability of a clinically significant, sudden or life threatening deterioration of the following system(s) required my full and direct attention, intervention and personal management. The time I documented below is in addition to time spent performing reported procedures but includes the following listed in this critical care notation. Medical Decision Making - Medical Records Medical records reviewed: Yes: I reviewed the patient's medical records. - Russel Inquiry Pt receiving controlled substance: No Vital Signs: 07/19/21 18:40 07/19/21 19:00 07/19/21 19:15 Temperature 98.6 F Temperature Source Oral Pulse Rate 68 110 H Pulse Rate [Right Radial] 78 Respiratory Rate 18 16 21 Blood Pressure 129/85 Blood Pressure [Right Arm] 140/88 Blood Pressure Mean 102 Blood Pressure Mean [Right Arm] 105 Blood Pressure Source [Right Arm] Automatic Cuff Blood Pressure Position [Right Arm] Sitting 02 Sat by Pulse Oximetry 100 100 98 Oxygen Delivery Method Room Air Room Air Room Air 07/19/21 19:30 07/19/21 19:45 Temperature Temperature Source Pulse Rate 71 73 Pulse Rate [Right Radial] Respiratory Rate 24 17 Blood Pressure 124/73 121/75 Blood Pressure [Right Arm] Blood Pressure Mean Blood Pressure Mean [Right Arm] Blood Pressure Source [Right Arm] Blood Pressure Position [Right Arm] 02 Sat by Pulse Oximetry 100 100 Oxygen Delivery Method Room Air Room Air - Lab Data Lab Results 07/19/21 18:43: WBC 8.4, RBC 4.87, Hgb 15.0, Hct 45.3, MCV 93.1, MCH 30.8, MCHC 33.1, RDW 13.5, Plt Count 179, MPV 10.8 H, Neut % (Auto) 72.5, Lymph % (Auto) 20.1, [place] % (Auto) 5.1, Eos % (Auto) 1.5, Baso % (Auto) 1.0, Neut # (Auto) 6.1, Lymph # (Auto) 1.7, [place] # (Auto) 0.4, Eos # (Auto) 0.1, Baso # (Auto) 0.1 07/19/21 18:43: D-Dimer 0.42 07/19/21 18:43: Sodium 140, Potassium 3.5, Chloride 105, Carbon Dioxide 29, Anion Gap 9.5, BUN 15, Creatinine 0.90, Estimated Creat Clear 136, Estimated GFR 93, Est GFR ( Amer) 113, Glucose 99, Calcium 8.9, Total Bilirubin 0.5, AST 31, ALT 21, Alkaline Phosphatase 50, Troponin I < 0.01, Total Protein 7.0, Albumin 4.5, Globulin 2.5, Albumin/Globulin Ratio 1.8 Result diagrams: 07/19/21 18:43 07/19/21 18:43 Orders (Tests/Meds): ED MEDICATIONS Discontinued Medications Generic Name Dose Route Start Last Admin Trade Name Freq PRN Reason Stop Dose Admin Aspirin 325 mg 07/19/21 18:46 07/19/21 18:53 Aspirin 325mg Tablet PO 07/19/21 18:47 243 mg ONCE ONE Administration Iopamidol 100 ml 07/19/21 19:45 07/19/21 19:47 Iopamidol-370 (76%);100ml Bottle IV 07/19/21 19:46 100 ml ONCE ONE Administration Nitroglycerin 0.4 mg 07/19/21 19:06 07/19/21 19:08 Nitroglycerin 0.4mg Sl Tablet SL 07/19/21 19:07 0.4 mg ONCE ONE Administration Sodium Chloride 50 ml 07/19/21 19:45 07/19/21 19:47 0.9 % Sodium Chloride 50 Ml Vial IV 07/19/21 19:46 50 ml ONCE ONE Administration Sodium Chloride 10 ml 07/19/21 19:45 07/19/21 19:47 Sodium Chloride 0.9% 10ml Syr (Rad Only) IV 07/19/21 19:46 10 ml ONCE ONE Administration ORDERS Category Date Time Status Rapid PCR Covid and Flu A/B Stat Lab 07/19/21 19:50 Received Troponin I Q3H Lab 07/19/21 22:00 Ordered Troponin I Q3H Lab 07/20/21 01:00 Ordered ECG Request by /Sergio Stat Y 07/19/21 18:46 Ordered - CT Data CT Scan: Chest Time Received: 20:[address] Reviewed: Yes: I have reviewed the patient's CT results, I have viewed the radiologist's interpretation Preliminary Findings: Normal/NAD Findings Narrative: CT ang
[2021-07-19 19:01] LABS: Basophils # 0.1 K/mm3 (0-0.2); Eosinophils # 0.1 K/mm3 (0.0-0.4); Eosinophils % 1.5 % (0.1-12.0); Hematocrit 45.3 % (42.0-52.0); Lymphocytes # 1.7 K/mm3 (0.7-4.5); Lymphocytes % 20.1 % (10-50); Mean Corpuscular HGB Conc 33.1 g/dL (31.8-35.4); Mean Corpuscular Hemoglobin 30.8 pg (27.0-31.2); Mean Corpuscular Volume 93.1 fl (80-94); Mean Platelet Volume 10.8 fl (7.4-10.4); Monocytes # 0.4 K/mm3 (0.1-1.0); Monocytes % 5.1 % (1.7-9.3); Neutrophils # 6.1 K/mm3 (1.8-7.8); Neutrophils % 72.5 % (37.0-80.0); Platelet Count 179 K/mm3 (142-424); Red Blood Count 4.87 M/mm3 (4.60-6.20); Red Cell Distribution Width 13.5 % (11.5-17.5); White Blood Count 8.4 K/mm3 (4.8-10.8)
[2021-07-19 19:07] LABS: Alanine Aminotransferase 21 U/L (12-78); Albumin Level 4.5 g/dl (3.5-5.0); Albumin/Globulin Ratio 1.8 (1.1-1.8); Alkaline Phosphatase 50 U/L (38-126); Anion Gap 9.5 mEq/L (5-15); Aspartate Amino Transferase 31 U/L (17-59); Bilirubin,Total 0.5 mg/dl (0.2-1.3); Blood Urea Nitrogen 15 mg/dl (9-20); Calcium 8.9 mg/dl (8.4-10.2); Carbon Dioxide 29 mmol/L (22.0-30.0); Chloride 105 mmol/L (98-107); Creatinine Clearance Estimated 136 mL/min (50-200); Estimated Glomerular Filt Rate 93 ml/min (>60); GFR (African American) 113 ML/MIN (>60); Globulin 2.5 g/dL (1.3-3.2); Glucose 99 mg/dl (74-100); Potassium 3.5 mmoL/L (3.5-5.1); Sodium 140 mmol/L (136-145)
[2021-07-19 19:12] LABS: D-Dimer 0.42 ug/mL (0.0-0.5)
--- NOTE | 2021-07-19 19:14 | PC.NURSE ---
Pt c/o increasing CP and tingling in extremities. MD notified
--- NOTE | 2021-07-19 19:15 | PC.NURSE ---
MD Mejía at pt bedside s/w pt & family. She would like pt placed on zoll for precautions he reports I feel my heart thumping against my chest . HR110 initially sinus rhythm and it trended down to 70s-80s and maintaining.
--- NOTE | 2021-07-19 19:19 | CT_ITS ---
PROCEDURE INFORMATION: Exam: CTA Chest With Contrast Exam date and time: 07/19/2021 7:35 PM Age: 41 years old Clinical indication: Sternal or substernal pain; Patient HX: Chest pain; Additional info: Cp TECHNIQUE: Imaging protocol: Computed tomographic angiography of the chest with contrast. 3D rendering (Not supervised by radiologist): MIP and/or 3D reconstructed images were created by the technologist. Radiation optimization: All CT scans at this facility use at least one of these dose optimization techniques: automated exposure control; mA and/or kV adjustment per patient size (includes targeted exams where dose is matched to clinical indication); or iterative reconstruction. Contrast material: ISOVUE 370; Contrast volume: 100 ml; Contrast route: INTRAVENOUS (IV); COMPARISON: CT CHEST WO/W CON 05/04/2020 9:54 AM FINDINGS: Pulmonary arteries: Normal. No pulmonary emboli. Aorta: Unremarkable. No aortic aneurysm. No aortic dissection. Lungs: Right upper lobe fissural node measures 5 mm, axial image 50. Left delusional measures 5 mm, axial image 66. Pleural spaces: Unremarkable. No pneumothorax. No pleural effusion. Heart: Unremarkable. No cardiomegaly. No pericardial effusion. Lymph nodes: Unremarkable. No enlarged lymph nodes. Bones/joints: Unremarkable. No acute fracture. Soft tissues: Unremarkable. IMPRESSION: Right upper lobe fissural node measures 5 mm, axial image 50. Left delusional measures 5 mm, axial image 66. Findings stable from May 2020. Recommend 12 month follow-up to complete 2 year evaluation for stability. No CT angiography evidence of pulmonary embolism.
[2021-07-19 19:27] LABS: Troponin I < 0.01 ng/ml (0.00-0.034)
--- NOTE | 2021-07-19 19:33 | PC.NURSE ---
PT REPORTS FEELING ANXIOUS. MD MADE AWARE. NO CHANGES. FAMILY REMAINS AT BEDSIDE.
--- NOTE | 2021-07-19 19:45 | PC.NURSE ---
This RN accompanied pt and weigher and grader to CT scanner w/ zoll monitoring.
[2021-07-19 19:59] LABS: Coronavirus 19, PCR Not Detected (NotDetected); Influenza A, PCR Not Detected (NotDetected); Influenza B, PCR Not Detected (NotDetected)
--- NOTE | 2021-07-19 20:33 | PC.NURSE ---
patient admitted to 205.
[2021-07-19 22:00] LABS: Amphetamine/Metha Screen,Urine Negative ng/ml (<1000)
[2021-07-19 22:01] LABS: Barbiturates Screen,Urine Negative ng/ml (<200)
[2021-07-19 22:02] LABS: Benzodiazepines Screen,Urine Negative ng/ml (<200); Cannabinoid Screen,Urine Negative ng/ml (<50)
[2021-07-19 22:03] LABS: Cocaine Screen,Urine Negative ng/ml (<300)
[2021-07-19 22:04] LABS: Methadone Screen,Urine Negative ng/ml (<300); Opiate Screen,Urine Negative ng/ml (<300)
[2021-07-19 22:05] LABS: Phencyclidine Screen,Urine Negative ng/ml (<25)
--- NOTE | 2021-07-19 22:11 | PC.NURSE ---
PT ARRIVED TO FLOOR VIA W/C FROM ED W/STAFF @ [id number]
[2021-07-19 23:59] LABS: Troponin I < 0.01 ng/ml (0.00-0.034)
[2021-07-20] VITALS (18 sets, daily range): BP systolic 97–138; BP diastolic 48–79; PULSE 55–91; RESP 16–20; TEMP 36.6–37; O2SAT 92–99; BMI 25.0
--- NOTE | 2021-07-20 06:58 | PC.NURSE ---
No acute changes since admission. Pt has not voiced any complaints to staff. Call light within reach.
[2021-07-20 07:14] LABS: Chloride 107 mmol/L (98-107); Potassium 4.2 mmoL/L (3.5-5.1); Sodium 139 mmol/L (136-145)
--- NOTE | 2021-07-20 07:16 | HMH.PHAVTE ---
[facility] Pharmacy VTE Monitoring - Patient Demographics Admission date: 07/19/21 Report Date: 07/20/21 Time: 07:16 Allergies/Adverse Reactions: Patient Allergies Penicillins Allergy (Verified 07/15/21 09:11) Height: 1.85 m Weight: 85.638 kg Patient Problems: Current Active Problems Chest pain (Acute) - VTE Risk Labs: VTE Related Lab Results Hgb 15.0 g/dL (14.1-18.0) 07/19/21 18:43 Hct 45.3 % (42.0-52.0) 07/19/21 18:43 Plt Count 179 K/mm3 (142-424) 07/19/21 18:43 BUN 15 mg/dl (9-20) 07/19/21 18:43 Creatinine 0.90 mg/dl (0.66-1.25) 07/19/21 18:43 Estimated Creat Clear 136 mL/min (50-200) 07/19/21 18:43 - Prophylaxis VTE Prophylaxis Ordered?: Yes Types of VTE Prophylaxis: TEDS Knee High Location of Applied Device: Bilateral Lower Extremeties
--- NOTE | 2021-07-20 07:16 | HMH.PHAINT ---
MEDICATION RECONCILIATION COMPLETED ON PATIENT USING EXTERNAL FILL HISTORY FROM PHARMACY AND LIST FROM CARDIOLOGY OFFICE. -ZACARIAS CHAND
[2021-07-20 07:17] LABS: Anion Gap 8.2 mEq/L (5-15); Basophils # 0.1 K/mm3 (0-0.2); Basophils % 0.7 % (0.1-2.0); Blood Urea Nitrogen 18 mg/dl (9-20); Calcium 8.1 mg/dl (8.4-10.2); Carbon Dioxide 28 mmol/L (22.0-30.0); Creatinine Clearance Estimated 119 mL/min (50-200); Eosinophils # 0.1 K/mm3 (0.0-0.4); Eosinophils % 1.5 % (0.1-12.0); Estimated Glomerular Filt Rate 83 ml/min (>60); GFR (African American) 100 ML/MIN (>60); Glucose 87 mg/dl (74-100); Hematocrit 45.7 % (42.0-52.0); Hemoglobin 14.7 g/dL (14.1-18.0); Lymphocytes # 1.5 K/mm3 (0.7-4.5); Lymphocytes % 18.8 % (10-50); Mean Corpuscular HGB Conc 32.2 g/dL (31.8-35.4); Mean Corpuscular Hemoglobin 30.2 pg (27.0-31.2); Mean Corpuscular Volume 93.8 fl (80-94); Mean Platelet Volume 11.1 fl (7.4-10.4); Monocytes # 0.6 K/mm3 (0.1-1.0); Monocytes % 7.1 % (1.7-9.3); Neutrophils # 5.6 K/mm3 (1.8-7.8); Platelet Count 154 K/mm3 (142-424); Red Blood Count 4.88 M/mm3 (4.60-6.20); Red Cell Distribution Width 13.6 % (11.5-17.5); White Blood Count 7.7 K/mm3 (4.8-10.8)
[2021-07-20 07:36] LABS: Troponin I < 0.01 ng/ml (0.00-0.034)
--- NOTE | 2021-07-20 09:06 | HMH.HP ---
*Admission Date: 07/19/21 <Pratibha Bolton - 07/20/21 09:21> *Chief complaint: Chest pain <Pratibha Bolton - 07/20/21 09:21> *History of present illness: Mr. Baptiste is a 41-year-old male patient with a history of GERD who presented to [facility] emergency room after experiencing left anterior chest discomfort for about an hour. He stated the pain started at work and he drove himself from [facility] and to the [facility] emergency room. He describes the pain is pressure with periodic thumping pain. He has some shortness of breath. He describes palpitations. He has not been feeling well for the past 2 weeks with weakness and saw his primary care physician who ordered blood work and started him on Paxil. He then had chest discomfort and went to the emergency room in [facility]. He was told his enzymes were elevated and was referred to cardiology. He saw story writer Dr. Fuchs who planned a catheterization which insurance denied. He then had the chest discomfort yesterday and thus presented to the emergency room yesterday evening.. He does have a positive family history and he continues to smoke. Also to note the patient has been taking an a.m. daily energy drink. He discontinued this about a week ago. With evaluation in the emergency room He had a chest CTA which showed The following: IMPRESSION: Right upper lobe fissural node measures 5 mm, axial image 50. Left delusional measures 5 mm, axial image 66. Findings stable from May 2020. Recommend 12 month follow-up to complete 2 year evaluation for stability. No CT angiography evidence of pulmonary embolism. Patient was stable in the emergency room with a normal CBC. D-dimer was 0.42. Electrolytes were normal. Renal function was normal. Troponin I's were normal x3. He received nitroglycerin and aspirin in the ER which resolved his chest pain. This a.m. patient continues to have some left anterior chest discomfort although not nearly as severe as it was upon presentation to the ER. He ate breakfast without difficulty. He had minimal sleep during the night. <Pratibha Bolton - 07/20/21 09:21> [facility] History Medical History: Reports:: Depression, Gastroesophageal Reflux Disease(GERD) Denies:: Diabetes Mellitus Type 1, Diabetes Mellitus Type 2 <ChePratibha - 07/20/21 09:21> *Have you ever received a pneumonia vaccine?: No <BoltonPratibha - 07/20/21 09:21> *Have you received a flu vaccine this season?: No <BoltonPratibha - 07/20/21 09:21> Other Surgeries: Yes: Colonoscopy <Bolton,Pratibha - 07/20/21 09:21> Fractures: Yes (BACK) <BoltonPratibha hernandez 07/20/21 09:21> - *Social History Last grade of school completed: GED <ChePratibha 07/20/21 09:21> Smoking Status: Current every day smoker <BoltonPratibha hernandez 07/20/21 09:21> Tobacco Type: cigarettes <BoltonPratibha hernandez 07/20/21 09:21> # Packs/Day (cigarettes): 2 <Pratibha Bolton 07/20/21 09:21> Alcohol Intake: current <Pratibha Bolton 07/20/21 09:21> Alcohol Intake Frequency:: holidays/special occasions only <BoltonPratibha 07/20/21 09:21> Substance Use Type: denies use <Bolton,Pratibha 07/20/21 09:21> *Occupational Status:: employed <BoltonPratibha hernandez 07/20/21 09:21> Housing: house <BoltonPratibha 07/20/21 09:21> Household Members: spouse, children <Pratibha Bolton 07/20/21 09:21> *Travel in the last 8 weeks: None <Pratibha Bolton 07/20/21 09:21> Family Hx:: Heart Attack, Coronary Artery Disease, Hypertension <Pratibha Bolton 07/20/21 09:21> Review of Systems - Constitutional Reports excessive sweating (He has nightly sweats), Reports fatigue, Reports lack of energy, Denies fever(s) <Pratibha Bolton 07/20/21 09:21> - Eyes Reports change in vision <Pratibha Bolton 07/20/21 09:21> - ENT Reports sore throat, Denies ear pain <Pratibha Bolton 07/20/21 09:21> - *Cardiovascular Reports chest pain, Denies shortness of breath, Denies leg swelling <CheKa
--- NOTE | 2021-07-20 09:45 | HMH.CNCARD ---
History of Present Illness Consult date: 07/20/21 Requesting physician: Clif Islas Consult reason: chest pain Chief complaint: chest pain History of present illness: This is a 41-year-old white gentleman who presented to the emergency department with complaints of chest pain. He states that he was on his way home from work yesterday and he was driving when he had sudden onset of substernal chest pain. He states that this is a pressure sensation in the substernal aspect of his chest. He states that sometimes it radiates to his shoulder. The patient also has a sensation of his heart racing when this happens. He states that for the last 2 weeks this pain has been occurring intermittently and he has not felt well. He states that this can be severe. The patient reports that he went to [facility] last week with chest pain and was told that his cardiac enzymes were elevated and he was referred to cardiology. He saw Dr. ALFRED Eduardo on Sunday and was set up for left cardiac catheterization but his insurance denied this. Yesterday his chest pain recurred and was severe and he came into the emergency department. His troponins here are negative. He does have a positive family history of coronary disease and he is a smoker. He states that he continues to have the chest pain intermittently. It is associated with shortness of breath, nausea and diaphoresis. It does radiate to his shoulder. It is worse with exertion. Nothing really seems to help improve the pain. It typically last for approximately an hour. He denies any fever, chills, vomiting, diarrhea, PND or orthopnea. [facility] History I have reviewed the patient's past medical history: Yes Medical History: Reports:: Depression, Gastroesophageal Reflux Disease(GERD) Denies:: Diabetes Mellitus Type 1, Diabetes Mellitus Type 2 *Have you ever received a pneumonia vaccine?: No *Have you received a flu vaccine this season?: No Other Surgeries: Yes: Colonoscopy Fractures: Yes (BACK) - *Social History Last grade of school completed: GED Smoking Status: Current every day smoker Tobacco Type: cigarettes # Packs/Day (cigarettes): 2 Alcohol Intake: current Alcohol Intake Frequency:: holidays/special occasions only Substance Use Type: denies use *Occupational Status:: employed Housing: house Household Members: spouse, children *Travel in the last 8 weeks: None - Psychiatric History Pschychiatric History:: Reports:: Depression Family Hx:: Heart Attack, Coronary Artery Disease, Hypertension Meds Home Medications Medication Instructions Recorded Confirmed Type paroxetine HCl 20 mg tablet 20 mg PO DAILY tab 06/30/21 07/19/21 History Omeprazole 40 mg PO DAILY 07/19/21 07/19/21 History Allergies Allergy/AdvReac Type Severity Reaction Status Date / Time Penicillins Allergy Verified 07/15/21 09:11 Exam Vital signs and Labs for Last 24 Hours: Temp Pulse Resp BP Pulse Ox 98.6 F 72 16 138/79 98 07/20/21 08:00 07/20/21 08:00 07/20/21 08:00 07/20/21 08:00 07/20/21 08:00 Laboratory Results - last 24 hr 07/19/21 18:43: WBC 8.4, RBC 4.87, Hgb 15.0, Hct 45.3, MCV 93.1, MCH 30.8, MCHC 33.1, RDW 13.5, Plt Count 179, MPV 10.8 H, Neut % (Auto) 72.5, Lymph % (Auto) 20.1, [place] % (Auto) 5.1, Eos % (Auto) 1.5, Baso % (Auto) 1.0, Neut # (Auto) 6.1, Lymph # (Auto) 1.7, [place] # (Auto) 0.4, Eos # (Auto) 0.1, Baso # (Auto) 0.1 07/19/21 18:43: D-Dimer 0.42 07/19/21 18:43: Sodium 140, Potassium 3.5, Chloride 105, Carbon Dioxide 29, Anion Gap 9.5, BUN 15, Creatinine 0.90, Estimated Creat Clear 136, Estimated GFR 93, Est GFR ( Amer) 113, Glucose 99, Calcium 8.9, Total Bilirubin 0.5, AST 31, ALT 21, Alkaline Phosphatase 50, Troponin I < 0.01, Total Protein 7.0, Albumin 4.5, Globulin 2.5, Albumin/Globulin Ratio 1.8 07/19/21 19:50: SARS-CoV-2 (PCR) Not detected, Influenza A Untype (PCR) Not detected, Influenza Type B (PCR) Not detected 07/19/21 21:40: Urine Opiates
[2021-07-20 10:02] LABS: Cholesterol 198 mg/dl (140-200); Triglycerides 46 mg/dl (30-150); VLDL Cholesterol 9 mg/dL (0-40)
[2021-07-20 10:03] LABS: Chol/HDL Ratio 5.4 (1-3.5); HDL Cholesterol 37 mg/dl (40-60)
[2021-07-20 10:13] LABS: Direct LDL Cholesterol 125.23 mg/dL (100-129)
--- NOTE | 2021-07-20 10:22 | IR_ITS ---
APPROVED REPORT Patient Location: Inpatient Fiscal Services Manager: CHESTER Guzman RT (R) PROCEDURES Left heart catheterization Left ventriculogram Selective coronary angiogram INDICATION History of elevated troponin at outside hospital, Readmission to the hospital with recurrent angina pectoris Informed consent was obtained prior to the procedure. COMPLICATIONS None Estimated Blood Loss: Less than 10 mls TECHNIQUE One percent lidocaine used to anesthetize the right anterior aspect of the wrist. The right radial artery was accessed via the Seldinger technique. A 6 Lithuan[place] sheath was placed in the right radial artery. 2.5 mg of verapamil, 800 mcg of nitroglycerin, 1mg Lidocaine and 5000 U Heparin were given through the arterial sheath. The papa catheter was also used to perform left heart catheterization, left ventriculogram and selective coronary angiogram. At the end of the procedure the sheath was removed good hemostasis was achieved using Traclet band, patient was transferred to the postop holding area in stable condition. ANGIOGRAPHIC RESULTS The left main artery Normal The left anterior descending artery Normal The circumflex artery Normal The right coronary artery Dominant normal The BROWN ventriculogram reveals Normal 65% The left ventricular end-diastolic pressure Normal 10 mmHg IMPRESSION Normal coronary arteries Normal ejection fraction Normal left ventricular end-diastolic pressure PLAN 1. The etiology for the previously elevated troponin is unknown. 2. Recommend noncardiac evaluation of chest pain Electronically signed by : Godfrey Cedeno MD 07/20/2021 12:13:45
--- NOTE | 2021-07-20 17:33 | PC.NURSE ---
PT IS RESTING IN BED WITH FAMILY AT BEDSIDE. ALERT AND ORIENTED X4. PT HAS BEEN SLEEPING OFF AND ON SINCE HEART CATH. NO COMPLAINTS OF CHEST PAIN OR SOA. CATH VSS. LUNG SOUNDS CLEAR. ABDOMEN SOFT/NON TENDER WITH ACTIVE BOWEL SOUNDS. AMBULATES TO THE BATHROOM. EATING AND DRINKING WELL. WILL CONTINUE TO MONITOR.
--- NOTE | 2021-07-20 19:05 | P.PN_ITS ---
Internal Medicine - PN: Subj *Date: 07/20/21 *Time: 19:05 Interval history: The case was discussed with Dr. Islas this morning. The heart cath did not show coronary artery disease. It was felt he could be discharged. Prior to discharge this evening I ordered some arthritis studies including uric acid, JAYLENE, and sed rate.. He seemed to complain most of chest wall discomfort in the left upper chest area. He certainly could have condochondritis. Exam Vital signs and Labs for Last 24 Hours: Temp Pulse Resp BP Pulse Ox 97.9 F 60 18 114/66 95 07/20/21 17:27 07/20/21 17:27 07/20/21 17:27 07/20/21 17:27 07/20/21 17:27 Laboratory Results - last 24 hr 07/19/21 18:43: D-Dimer 0.42 07/19/21 18:43: Sodium 140, Potassium 3.5, Chloride 105, Carbon Dioxide 29, Anion Gap 9.5, BUN 15, Creatinine 0.90, Estimated Creat Clear 136, Estimated GFR 93, Est GFR ( Amer) 113, Glucose 99, Calcium 8.9, Total Bilirubin 0.5, AST 31, ALT 21, Alkaline Phosphatase 50, Troponin I < 0.01, Total Protein 7.0, Albumin 4.5, Globulin 2.5, Albumin/Globulin Ratio 1.8 07/19/21 19:50: SARS-CoV-2 (PCR) Not detected, Influenza A Untype (PCR) Not detected, Influenza Type B (PCR) Not detected 07/19/21 21:40: Urine Opiates Screen Negative, Urine Methadone Screen Negative, Ur Barbituates Screen Negative, Ur Phencyclidine Scrn Negative, Ur Amphetamines Screen Negative, U Benzodiazepines Scrn Negative, Urine Cocaine Screen Negative, U Marijuana (THC) Screen Negative 07/19/21 23:30: Troponin I < 0.01 07/20/21 06:55: Troponin I < 0.01 07/20/21 06:55: WBC 7.7, RBC 4.88, Hgb 14.7, Hct 45.7, MCV 93.8, MCH 30.2, MCHC 32.2, RDW 13.6, Plt Count 154, MPV 11.1 H, Neut % (Auto) 72.0, Lymph % (Auto) 18.8, Gonzales % (Auto) 7.1, Eos % (Auto) 1.5, Baso % (Auto) 0.7, Neut # (Auto) 5.6, Lymph # (Auto) 1.5, Gonzales # (Auto) 0.6, Eos # (Auto) 0.1, Baso # (Auto) 0.1 07/20/21 06:55: Sodium 139, Potassium 4.2, Chloride 107, Carbon Dioxide 28, Anion Gap 8.2, BUN 18, Creatinine 1.00, Estimated Creat Clear 119, Estimated GFR 83, Est GFR ( Amer) 100, Glucose 87, Calcium 8.1 L 07/20/21 06:55: Triglycerides 46, Cholesterol 198, LDL Cholesterol Direct 125.23, VLDL Cholesterol 9, HDL Cholesterol 37 L, Cholesterol/HDL Ratio 5.4 H I & O for Last 24 hours: Intake & Output 07/18/21 07/19/21 07/20/21 07/21/21 11:59 11:59 11:59 11:59 Intake Total 240 / 240 840 / 840 Balance 240 / 240 840 / 840 Weight 188 lb 12.8 oz Assessment and Plan (1) Unstable angina Status: Acute Category: Medical Code(s): I20.0 - Unstable angina (2) Tobacco dependence syndrome Status: Acute Category: Medical Code(s): F17.200 - Nicotine dependence, unspecified, uncomplicated (3) GERD (gastroesophageal reflux disease) Status: Chronic Category: Medical Code(s): K21.9 - Gastro-esophageal reflux disease without esophagitis (4) Family history of coronary artery disease Status: Acute Category: Medical Code(s): Z82.49 - Family history of ischemic heart disease and other diseases of the circulatory system
--- NOTE | 2021-07-20 19:10 | PC.NURSE ---
PT WAS D/C AT 1910
[2021-07-20 19:33] LABS: Erythrocyte Sedimentation Rate 41 mm/hr (0-15)
--- NOTE | 2021-07-21 14:58 | CARE MANAGER ---
Spoke with patient post discharge from [facility], he knows his follow-up appointment and did not receive any new medications. No further needs at this time.
--- NOTE | 2021-07-21 16:17 | HMH.DCSUM ---
General - General Admission date:: 07/19/21 Discharge date: 07/20/21 HPI HPI: Mr. Baptiste is a 41-year-old male patient with a history of GERD who presented to [facility] emergency room after experiencing left anterior chest discomfort for about an hour. He stated the pain started at work and he drove himself from [facility] and to the [facility] emergency room. He describes the pain is pressure with periodic thumping pain. He has some shortness of breath. He describes palpitations. He has not been feeling well for the past 2 weeks with weakness and saw his primary care physician who ordered blood work and started him on Paxil. He then had chest discomfort and went to the emergency room in [facility]. He was told his enzymes were elevated and was referred to cardiology. He saw [employer] founder Dr. Fuchs who planned a catheterization which insurance denied. He then had the chest discomfort yesterday and thus presented to the emergency room yesterday evening.. He does have a positive family history and he continues to smoke. Also to note the patient has been taking an a.m. daily energy drink. He discontinued this about a week ago. With evaluation in the emergency room He had a chest CTA which showed The following: IMPRESSION: Right upper lobe fissural node measures 5 mm, axial image 50. Left delusional measures 5 mm, axial image 66. Findings stable from May 2020. Recommend 12 month follow-up to complete 2 year evaluation for stability. No CT angiography evidence of pulmonary embolism. Patient was stable in the emergency room with a normal CBC. D-dimer was 0.42. Electrolytes were normal. Renal function was normal. Troponin I's were normal x3. He received nitroglycerin and aspirin in the ER which resolved his chest pain. This a.m. patient continues to have some left anterior chest discomfort although not nearly as severe as it was upon presentation to the ER. He ate breakfast without difficulty. He had minimal sleep during the night. Hospital Course Hospital Course: Troponin I's were negative and cardiology was consulted. They saw the patient and wanted to perform a heart cath. He had a heart cath on 07/20/2021 that showed normal coronary arteries with a normal ejection fraction and a normal left ventricular end-diastolic pressure. Cardiology recommended noncardiac evaluation of chest pain. It was felt the patient could be discharged. Prior to discharge, Dr. Melendez ordered some arthritis studies including uric acid, JAYLENE, and sed rate. He did complain mostly of chest wall discomfort in the left upper chest area and certainly could have had costochondritis. Of note, his sed rate was elevated. His uric acid was normal. His JAYLENE is still pending. Objective Vital signs: Temp Pulse Resp BP Pulse Ox 97.9 F 60 18 114/66 95 07/20/21 17:27 07/20/21 17:27 07/20/21 17:27 07/20/21 17:27 07/20/21 17:27 Narrative: - Constitutional no acute distress Comments: Sitting up in the bed and appears comfortable - *Routine HEENT Exam Head: Present: normocephalic, atraumatic Eye: Present: PERRL. Absent: conjunctival icterus, scleral injection ENT: Present: mucous membranes moist, oropharynx clear - *Routine Neck Exam Present: supple. Absent: carotid bruit, lymphadenopathy, thyromegaly - *Routine Respiratory Exam Present: CTA bilaterally (Anteriorly and posteriorly) - *Routine Cardiovascular Exam Present: RRR - *Routine Abdominal Exam Present: soft, normoactive bowel sounds. Absent: tenderness, distended - *Routine Rectal Exam Rectal:: deferred - *Routine Genitalia Exam Genitalia:: deferred - *Routine Extremities Exam Present: full ROM, pulses intact. Absent: edema, calf tenderness - *Routine Neurological Exam Present: alert, oriented X3 Results Labs on day of discharge: Labs from [facility]
[2021-07-22 16:40] LABS: Anti-Centromere B Antibodies <0.2 AI (0.0-0.9); Anti-DNA (DS) Ab Qn <1 IU/mL (0-9); Anti-Jo-1 <0.2 AI (0.0-0.9); Antichromatin Antibodies <0.2 AI (0.0-0.9); Antiscleroderma-70 Antibodies <0.2 AI (0.0-0.9); RNP Antibodies 1.1 AI (0.0-0.9); Sjogren's Anti-SS-A <0.2 AI (0.0-0.9); Sjogren's Anti-SS-B <0.2 AI (0.0-0.9)
[2021-08-01 08:39] LABS: Anti-Centromere B Abs Charge YES; Anti-DNA (DS) Ab Charge YES; Anti-Jo-1 Charge YES; Antichromatin Abs Charge YES; Antinuclear Antibodies (ANA) Positive; Antiscleroderma-70 Abs Charge YES; RNP Antibodies Charge YES; Sjogren's Anti-SS-A Ab Charge YES; Sjogren's Anti-SS-B Ab Charge YES; Smith Antibodies Charge YES
== END 2021-07-20 19:11 | disposition home or self-care (01) ==
LOC: ER 20:12 → 2ND 22:09
PROVIDERS: Family Medicine; Internal Medicine; Nurse Practitioner Family; Admitting Provider Family Medicine; Emergency Provider Emergency Medicine; PCP Nurse Practitioner Family; Visit Provider Family Medicine
DX: R07.9 Chest pain, unspecified (principal); F17.210 Nicotine dependence, cigarettes, uncomplicated; Z20.822 Contact with and (suspected) exposure to COVID-19; Z82.49 Family history of ischemic heart disease and other diseases of the circulatory system; I20.8 Other forms of angina pectoris; Z79.899 Other long term (current) drug therapy
CPT/HCPCS: 36415; 71045; 71275; 80048; 80053; 80061; 80305; 84484; 84550; 85025; 85378; 85651; 86038; 86225; 86235; 93005; 93458; 99152; 99285; C1725; C1769; C9803; G0378; J1644; Q9967; U0003; U0005

== ENCOUNTER → 2022-02-28 06:59 | Outpatient (CLI) | payer BC, SELFPAY ==
[2022-02-28 07:29] LABS: Basophils # 0.1 K/mm3 (0-0.2); Basophils % 1.2 % (0.1-2.0); Eosinophils # 0.3 K/mm3 (0.0-0.4); Hematocrit 47.3 % (42.0-52.0); Hemoglobin 15.2 g/dL (14.1-18.0); Lymphocytes # 1.1 K/mm3 (0.7-4.5); Lymphocytes % 16.9 % (10-50); Mean Corpuscular HGB Conc 32.1 g/dL (31.8-35.4); Mean Corpuscular Hemoglobin 29.9 pg (27.0-31.2); Mean Corpuscular Volume 93.1 fl (80-94); Mean Platelet Volume 10.4 fl (7.4-10.4); Monocytes # 0.4 K/mm3 (0.1-1.0); Monocytes % 5.8 % (1.7-9.3); Neutrophils # 4.7 K/mm3 (1.8-7.8); Neutrophils % 72.1 % (37.0-80.0); Platelet Count 169 K/mm3 (142-424); Red Blood Count 5.09 M/mm3 (4.60-6.20); Red Cell Distribution Width 12.8 % (11.5-17.5); White Blood Count 6.5 K/mm3 (4.8-10.8)
[2022-02-28 08:39] LABS: Chloride 106 mmol/L (98-107); Potassium 4.6 mmoL/L (3.5-5.1); Sodium 140 mmol/L (136-145)
[2022-02-28 08:42] LABS: Alanine Aminotransferase 21 U/L (12-78); Albumin Level 4.4 g/dl (3.5-5.0); Alkaline Phosphatase 61 U/L (38-126); Anion Gap 9.6 mEq/L (5-15); Aspartate Amino Transferase 32 U/L (17-59); Bilirubin,Total 0.4 mg/dl (0.2-1.3); Blood Urea Nitrogen 12 mg/dl (9-20); Carbon Dioxide 29 mmol/L (22.0-30.0); Estimated Glomerular Filt Rate 82 ml/min (>60); GFR (African American) 100 ML/MIN (>60); Globulin 2.2 g/dL (1.3-3.2); Total Protein,Serum 6.6 g/dl (6.3-8.2)
[2022-02-28 08:43] LABS: Calcium 9.3 mg/dl (8.4-10.2); Glucose 78 mg/dl (74-100)
[2022-03-02 04:09] LABS: ALT (SGPT) P5P 19 IU/L (0-55); AST (SGOT) P5P 22 IU/L (0-40); Alpha 2-Macroglobulins, Qn 164 mg/dL (110-276); Apolipoprotein A-1 104 mg/dL (101-178); Bilirubin, Total 0.4 mg/dL (0.0-1.2); Cholesterol, Total 191 mg/dL (100-199); Fibrosis Score 0.11 (0.00-0.21); GGT 12 IU/L (0-65); Glucose 85 mg/dL (70-99); Haptoglobin 162 mg/dL (23-355); NASH Score 0.25 (0.25); Steatosis Score 0.25 (0.00-0.30); Triglycerides 59 mg/dL (0-149)
== END ==
PROVIDERS: PCP Nurse Practitioner Family; Visit Provider Nurse Practitioner Family
DX: R10.13 Epigastric pain (principal); R19.7 Diarrhea, unspecified; R19.4 Change in bowel habit
CPT/HCPCS: 36415; 80053; 85025

== ENCOUNTER → 2022-03-01 10:21 | Outpatient (CLI) | payer BC, SELFPAY ==
[2022-03-01 10:24] LABS: Adenovirus F 40/41, stool Not Detected (NotDetected); Astrovirus Not Detected (NotDetected); Campylobacter Not Detected (NotDetected); Clostridium Difficile A/B, PCR Not Detected (NotDetected); Cryptosporidium Not Detected (NotDetected); Cyclospora Cayetanesis Not Detected (NotDetected); Entamoeba histolytica Not Detected (NotDetected); Enteroaggregative E coli Not Detected (NotDetected); Enteropathogenic E coli Not Detected (NotDetected); Enterotoxigenic E coli Not Detected (NotDetected); Giardia lamblia Not Detected (NotDetected); Norovirus Not Detected (NotDetected); Plesimonas Shigalloides, PCR Not Detected (NotDetected); Rotavirus A Not Detected (NotDetected); Salmonella, PCR Not Detected (NotDetected); Sapovirus Not Detected (NotDetected); Shiga-like toxin E coli Not Detected (NotDetected); Shigella Enterovasive E coli Not Detected (NotDetected); Vibrio Cholerae Not Detected (NotDetected); Vibrio, PCR Not Detected (NotDetected); Yersinia Entercolitica, PCR Not Detected (NotDetected)
== END ==
PROVIDERS: PCP Nurse Practitioner Family; Visit Provider Nurse Practitioner Family
DX: R19.7 Diarrhea, unspecified (principal)
CPT/HCPCS: 87507

== ENCOUNTER 2023-01-13 23:19 | Emergency (ER) | payer BC, SELFPAY ==
[2023-01-13 23:19] VITALS: BP 131/99; PULSE 72; RESP 18; TEMP 36.7; O2SAT 99; BMI 29.0
[2023-01-13 23:27] VITALS: BP 121/87; PULSE 75; RESP 20; O2SAT 99
--- NOTE | 2023-01-13 23:27 | XR_ITS ---
PROCEDURE INFORMATION: Exam: XR Chest Exam date and time: 01/13/2023 11:27 PM Age: 42 years old Clinical indication: Pain; Other: Hematemesis; Other: Not specified; Additional info: Hematemesis, pain TECHNIQUE: Imaging protocol: Radiologic exam of the chest. Views: 2 views. COMPARISON: CR XR CHEST PORTABLE 07/19/2021 6:40 PM FINDINGS: Lungs: No evidence of acute pulmonary disease or infiltrates; lung hood appear clear. Pleural spaces: No evidence of pleural effusion, pneumothorax, or pleural thickening in the visualized pleural spaces. Heart/Mediastinum: No evidence of mediastinal widening or cardiac silhouette enlargement; the mediastinum and heart appear within normal limits for contour and size. Diaphragm: There is elevation of the right hemidiaphragm. Bones/joints: No evidence of acute osseous abnormalities within the visualized portions of the thoracic spine and ribs. Osseous structures appear appropriate for patient age. IMPRESSION: No dense parenchymal consolidation, pleural effusion, or pneumothorax.
[2023-01-13 23:31] VITALS: BP 131/85; PULSE 69; RESP 18; O2SAT 99
[2023-01-13 23:38] LABS: Basophils # 0.1 K/mm3 (0-0.2); Basophils % 0.3 % (0.1-2.0); Eosinophils # 0.2 K/mm3 (0.0-0.4); Eosinophils % 1.6 % (0.1-12.0); Hemoglobin 15.9 g/dL (14.1-18.0); Lymphocytes # 1.7 K/mm3 (0.7-4.5); Lymphocytes % 12.5 % (10-50); Mean Corpuscular HGB Conc 35.2 g/dL (31.8-35.4); Mean Corpuscular Hemoglobin 32.3 pg (27.0-31.2); Mean Corpuscular Volume 91.7 fl (80-94); Mean Platelet Volume 9.9 fl (7.4-10.4); Monocytes # 0.6 K/mm3 (0.1-1.0); Monocytes % 4.6 % (1.7-9.3); Neutrophils # 11.1 K/mm3 (1.8-7.8); Neutrophils % 80.9 % (37.0-80.0); Platelet Count 149 K/mm3 (142-424); Red Cell Distribution Width 13.2 % (11.5-17.5); White Blood Count 13.8 K/mm3 (4.8-10.8)
[2023-01-13 23:42] LABS: Chloride 106 mmol/L (98-107); Sodium 144 mmol/L (136-145)
[2023-01-13 23:43] LABS: Potassium 4.4 mmoL/L (3.5-5.1)
[2023-01-13 23:45] LABS: Alanine Aminotransferase 32 U/L (12-78); Alkaline Phosphatase 63 U/L (38-126); Anion Gap 12.4 mEq/L (5-15); Aspartate Amino Transferase 43 U/L (17-59); Blood Urea Nitrogen 13 mg/dl (9-20); Calcium 8.4 mg/dl (8.4-10.2); Carbon Dioxide 30 mmol/L (22.0-30.0); Creatinine Clearance Estimated 137 mL/min (50-200); Estimated Glomerular Filt Rate 82 ml/min (>60); GFR (African American) 100 ML/MIN (>60); Glucose 102 mg/dl (74-100); Lipase 127 U/L (23-300)
[2023-01-13 23:46] LABS: Albumin Level 4.2 g/dl (3.5-5.0); Albumin/Globulin Ratio 1.4 (1.1-1.8); Bilirubin,Total 0.1 mg/dl (0.2-1.3); Globulin 2.9 g/dL (1.3-3.2); Prothrombin Time 10.8 seconds (10.1-12.5); Total Protein,Serum 7.1 g/dl (6.3-8.2)
[2023-01-14] VITALS: BP 126/77; PULSE 63; RESP 20; O2SAT 99
--- NOTE | 2023-01-14 00:04 | HMH.EDGENADL ---
Discharge Plan Disposition Patient Disposition: Home, Self-Care Condition: Good Prescriptions Prescriptions: New pantoprazole 40 mg tablet,delayed release (DR/EC) 40 mg PO DAILY Qty: 30 1RF ondansetron HCl 4 mg tablet 4 mg PO Q8H PRN (Reason: nausea and vomiting) 4 Days Qty: 12 0RF No Action paroxetine HCl 20 mg tablet 20 mg PO DAILY Referrals Follow up/Referrals: Lakeisah Larios [Primary Care Provider] - See instructions Activity Restrictions/Add. Instructions Additional Instructions/Restrictions: You were evaluated in the emergency department today. Please make sure that you are staying hydrated. Eat a bland diet until your symptoms have resolved. Hydrate is much as possible. 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 Take the pantoprazole daily as prescribed. Follow-up with your primary care provider over the next 48 hours for reassessment. Return to the emergency department for new or worsening symptoms. Clinical Impressions Clinical Impression: Hematemesis, Maria Del Carmen-Mendoza tear Instructions Patient Instructions: DI for Alcohol Use Disorder, DI for Acute Abdominal Pain, DI for Gastrointestinal Bleeding Discharge ED Provider: Bhumi Bojorquez General Adult HPI General Chief complaint: Abdominal Pain Stated complaint: gi bleed Time Seen by Provider: 01/13/23 23:25 Mode of Arrival: EMS Source of Information: Patient Limitations: No Limitations Description of Symptoms (Recalled from ER Triage Doc. by RN): pt began vomiting tonight at 2100 with no fever or abd pain, then after vomiting a few times he noted it had blood in it. pt states he drinks 3-4 beers a day and on the weekends its more. pt is alox4 with stable vitals upon triage History of Present Illness HPI narrative: This patient is a 42-year-old male who denies significant past medical history presenting to the emergency department for evaluation with concern for hematemesis. Patient reports that he started vomiting around 9:00 PM. He denies any associated pain. He initially had emesis of food and clear liquids, however he then had 1 emesis that was shelley blood. He states that it was about 50 mL on estimation. After this, he vomited again and it seemed to be clear, but blood-tinged. He has had no hematemesis since these 2 episodes. He states that his throat feels sore from vomiting, but he denies any recent fevers, chills, chest pain, shortness of breath, abdominal pain, changes bowel movements, or other concerns. On review of history, he notes that he drinks 3-4 beers daily during the week and more on the weekends. He states he has done this for many years now. He denies any prior history of diagnosis of liver disease. He denies any prior EGD or colonoscopy. On medical review, and notes that the patient has a history of GERD. Patient was brought in by EMS, and they note that he was hemodynamically stable during his 20-minute ride here with no recurrence of hematemesis. Related Data Home Medications Medication Instructions Recorded Confirmed paroxetine HCl 20 mg tablet 20 mg PO DAILY DEPRESSION/ANXIETY 06/30/21 01/13/23 Previous Rx's Medication Instructions Recorded ondansetron HCl 4 mg tablet 4 mg PO Q8H PRN nausea and 01/14/23 vomiting 4 days #12 tabs pantoprazole 40 mg tablet,delayed 40 mg PO DAILY #30 tabs 01/14/23 release Allergies Allergy/AdvReac Type Severity Reaction Status Date / Time Penicillins Allergy Verified 08/05/21 10:55 [facility] Disclaimer: The information contained in this section may have been updated after the patient was seen, as this information can be updated by other users. Medical History Abnormal electrocardiography Crescendo angina Daytime somnolence Dizziness Dyspnea Elevated troponin Family history of heart disease ROMINA (obstructive sleep apnea) Right axis deviation Snoring Tobacco dependence syndrome Social Hist
--- NOTE | 2023-01-14 00:18 | PC.NURSE ---
gave pt mt dew to drink for po challenge
[2023-01-14 00:30] VITALS: BP 123/76; PULSE 64; RESP 18; O2SAT 99
[2023-01-14 01:01] VITALS: BP 106/67; PULSE 66; RESP 16; O2SAT 98
[2023-01-14 02:18] VITALS: BP 93/61; PULSE 77; RESP 18; TEMP 37.1; O2SAT 96
== END 2023-01-14 02:22 | disposition home or self-care (01) ==
PROVIDERS: Emergency Provider Emergency Medicine; PCP Nurse Practitioner Family
DX: K22.6 Gastro-esophageal laceration-hemorrhage syndrome; K21.9 Gastro-esophageal reflux disease without esophagitis; I20.89 Other forms of angina pectoris; G47.30 Sleep apnea, unspecified
CPT/HCPCS: 71046; 80053; 83690; 85025; 85610; 86850; 96361; 96374; 96375; 99285; J2405